=== PATIENT | female | born 1990 | race Caucasian/White ===

== ENCOUNTER 2019-05-21 18:54 | Inpatient (IN) | payer MEDICAID ==
[~2019-05-21] VITALS: Ht 144.8 cm; Wt 56.9 kg
[2019-05-21 19:25] VITALS: BP 136/91; PULSE 67; RESP 18; Ht 144.8 cm; Wt 56.9 kg
[2019-05-21] MEDS ORDERED: LACTATED RINGER'S 1,000 ML IV SCH (20:46)
--- NOTE | 2019-05-21 23:07 | TRIAGE ---
OB Triage Datetime Report Generated by CPN: 05/21/2019 23:06 Datetime: 05/21/2019 22:15 Arrived By: Ambulatory Arrived From: TRIAGE Datetime: 05/21/2019 21:05 Stage of : OB Triage Labor Evaluation Monitor Mode: External Resting Tone [place]: Relaxed Heart Rate FHR Baseline Rate: 145 Monitor Mode: External US Variability: Moderate 6-25 bpm Accelerations: 15X15 Pain Assessment Pain Scale: 0 Pain Presence: None/Denies Pain Type: N/A Pain Relief Measures: Comfort Measures Datetime: 05/21/2019 19:55 Stage of : OB Triage Labor Evaluation Monitor Mode: External Resting Tone [place]: Relaxed Heart Rate FHR Baseline Rate: 145 Monitor Mode: External US Variability: Moderate 6-25 bpm Accelerations: 15X15 Pain Assessment Pain Scale: 0 Pain Presence: None/Denies Pain Type: N/A Pain Relief Measures: Comfort Measures Datetime: 05/21/2019 19:21 Stage of : OB Triage Assessment Type: Triage Time of Arrival: 05/21/2019 18:46 EGA: 24.1 Arrived By: Wheelchair Arrived From: Home Movement: Present Contractions: Denies/Absent Rupture of Membranes: Denies Vaginal Bleeding: None Vaginal Discharge: Present Recent Sexual Intercouse: Denies Abdominal Trauma: Not Applicable Patient Complaints: None Time Provider Notified: 05/21/2019 21:35 Provider Notified: Delshad Initial Plan: EFM, VS Maternal Assessment Level of Consciousness: Keenly Alert, Responsive DTR's/Clonus: DTRs 2+; No Clonus Headache: Denies Blurred Vision: No Respiratory Effort: Unlabored; Regular Rhythm; Equal Expansion Breath Sounds, Left: Clear and Equal Breath Sounds, Right: Clear and Equal Nausea/Vomiting: Denies RUQ Epigastric Pain: Denies Lower Extremities Edema: None Degree: None Upper Extremities Edema: None Degree: None Facial Edema: None Temperature Route: Oral Fall Risk Assessment History of Falling: (0) No Secondary Diagnosis: (0) No Ambulatory Aid: (0) Bedrest/Nurse Assist IV Therapy: (0) No Gait: (0) Normal/Bedrest/Immobile Mental Status: (0) Oriented to Own Ability Fall Score: 0 Fall Risk Score Definition: No Risk: No action required Labor Evaluation Monitor Mode: External Monitor Mode: External US Pain Assessment Pain Scale: 2 Pain Presence: Intermittent Pain Type: Ache Pain Location: Abdomen Pain Relief Measures: Comfort Measures
[2019-05-22] MEDS ORDERED: ASPIRIN 81 MG TAB PO SCH (09:00)
[2019-05-22] MEDS: PRENATAL VITAMIN PO SCH (10:50)
[2019-05-22] MEDS: ASPIRIN (EC) 81 MG TAB PO SCH (10:55)
--- NOTE | 2019-05-22 15:53 | CONS ---
Assessment/Plan Assessment/Plan Hospital Course (Demo Recall) With the help of an rn peritoneal dialysis I have explained to the mother about extreme prematurity, extremely low birthweight, survival greater than 70 to 80% based on when the baby is born, respiratory distress syndrome, ventilatory assistance, risk for chronic lung disease, intercurrent infections, antibiotic therapy, risk for necrotizing enterocolitis and gastrointestinal perforation, feeding problems with intolerance, slow nippling of prematurity, risk for intraventricular hemorrhage, risk for long-term neurodevelopmental problems including but not limited to delayed milestones, low intelligence, school problems, cerebral palsy, jaundice, phototherapy, general treatment plan and general procedures done in NICU and answered mother's questions and address the concerns. Mom seems to understand the risks with extreme prematurity. I have spent 25 to 30 minutes in reviewing the mother's history, explaining her problems related to extreme prematurity and extreme low birthweight and answering questions, coordinating the care with ancillary personnel and dictating the consult note. Thank you very much for allowing me to take part in the care of this patient, will follow the baby and the mom as needed Consultation Date/Type/Reason Admit Date/Time May 21, 2019 at 20:40 Date of Consultation: May 22, 2019 Type of Consult consult requested by Dr. Baez for prematurity at 24 and 2/7 weeks with history of chronic hypertension superimposed with gestational hypertension. Reason for Consultation Prematurity at 24 and 2/7 weeks with history of chronic hypertension superimposed with gestational hypertension Estimated weight is 711 g . EDC is 09/09/2019. Mom is 28-year-old, g ravida 2, para 1 with first child 1-year-old, born at term by section. Date/Time of Note DATE: 05/22/19 TIME: 15:48 Past Medical History Medications Current Medications Prenat Multivit/ [place]/Iron/Folic Ac () 1 tab DAILY PO Last administered on 05/22/19at 10:50; Admin Dose 1 TAB; Start 05/22/19 at 09:00 Aspirin (Halfprin) 81 mg DAILY PO Last administered on 05/22/19at 10:55; Admin Dose 81 MG; Start 05/22/19 at 11:00 Allergies: Coded Allergies: No Known Allergy (Unverified , 05/21/19) Social History Smoking Status: Never smoker Exam/Review of Systems Exam Vitals Vital Signs Date Temp Pulse Resp B/P (MAP) Pulse Ox O2 O2 Flow FiO2 Time Delivery Rate 05/21/19 99.0 67 18 136/91 99 Room Air 19:25 (106) Results Result Diagram: 05/21/19212905/21/192129 Results 24hrs Laboratory Tests Test 05/21/19 21:30 05/22/19 06:49 White Blood Count 14.4 H Red Blood Count 3.49 L Hemoglobin 11.4 L Hematocrit 34.0 L Mean Corpuscular Volume 97.4 Mean Corpuscular Hemoglobin 32.7 Mean Corpuscular Hemoglobin Concent 33.5 Red Cell Distribution Width 13.1 Platelet Count 279 Mean Platelet Volume 10.8 H Immature Granulocytes % 1.000 H Neutrophils % 65.1 Lymphocytes % 24.7 Monocytes % 7.7 Eosinophils % 0.8 Basophils % 0.7 Nucleated Red Blood Cells % 0.0 Immature Granulocytes # 0.140 H Neutrophils # 9.4 H Lymphocytes # 3.6 H Monocytes # 1.1 H Eosinophils # 0.1 Basophils # 0.1 Nucleated Red Blood Cells # 0.0 Prothrombin Time 13.3 Prothrombin Time Ratio 1.0 INR International Normalized Ratio 1.00 Activated Partial Thromboplast Time 29.1 Fibrinogen 439.0 Urine Color COLORLESS Urine Clarity CLEAR Urine pH 7.0 Urine Specific [place] 1.002 L Urine Ketones NEGATIVE Urine Nitrite NEGATIVE Urine Bilirubin NEGATIVE Urine Urobilinogen NEGATIVE Urine Leukocyte Esterase NEGATIVE Urine Hemoglobin NEGATIVE Urine Glucose 1+ H Urine Total Protein NEGATIVE Sodium Level 139 Potassium Level 3.7 Chloride Level 108 Carbon Dioxide Level 24 Anion Gap 7 Blood Urea Nitrogen 5 L Creatinine 0.47 Est Glomerular Filtrat Rate mL/min > 60 Glucose Level 64 L Uric Acid 2.4 L Calcium Level 8.7 Total Bilirubin 0.4 Direct Bilirubin 0.00 Indirect Bilirubin 0.4 Aspartate Amino Transf (AST/SGOT) 31 Alanine Aminotransferase (ALT/SGPT) 25 Alkaline Phosphatase 78 Total Protein 6.9 Albumin 3.4 Globulin 3.50 H Albumin/Globulin Ratio 0.97 Glucose 1 Hour Postprandial (Timed) 142 Medications Medication Current Medications Prenat Multivit/ [place]/Iron/Folic Ac () 1 tab DAILY PO Last administered on 05/22/19at 10:50; Admin Dose 1 TAB; Start 05/22/19 at 09:00 Aspirin (Halfprin) 81 mg DAILY PO Last administered on 05/22/19at 10:55; Admin Dose 81 MG; Start 05/22/19 at 11:00 JOSEPH RAND MD May 22, 2019 15:53
[2019-05-22] MEDS ORDERED: ACETAMINOPHEN 325 MG TAB PO PRN (16:30)
--- NOTE | 2019-05-22 20:05 | HP ---
Date/Time of Note Date/Time of Note DATE: 05/22/19 TIME: 20:02 OB - History Hx of Present Chief Complaint: elevated BP inclinic Estimated Due Date: Sep 09, 2019 : 2 Para: 1 Spontaneous : 0 Therapeutic : 0 Care: Good Care Ultrasounds: Normal mid trimester US Obstetrical Complications: None Medical Complications: None Past Family/Social History * Past Medical, Surgical, Family and Obstetric Histories reviewed from chart. OB Admission Exam Vital Signs Vital Signs Vital Signs Date Temp Pulse Resp B/P (MAP) Pulse Ox O2 O2 Flow FiO2 Time Delivery Rate 05/21/19 99.0 67 18 136/91 99 Room Air 19:25 (106) Physical Exam HEENT: WNL Heart: Rhythm Normal Lungs: Clear, Equal Abdomen: WNL Extremities: Normal Reflexes: Normal Heart Rate: 140's Last 72 hours Lab Results CBC & BMP 05/21/19 21:30 Liver Function Test 05/21/19 21:30 Alanine Aminotransferase (ALT/SGPT) 25 Albumin 3.4 Alkaline Phosphatase 78 Aspartate Amino Transf (AST/SGOT) 31 Direct Bilirubin 0.00 Total Protein 6.9 OB Assessment/Plan Reason for admission: other Other Assessment: R/O preeclampsia Plan: Other Other plan: Admit PIH labs 24 hour urine collection Monitor BP Perinatology and Neonatology consults VIDA CLEANING MD May 22, 2019 20:05
--- NOTE | 2019-05-23 04:30 | CONS ---
DATE OF ADMISSION: 05/21/2019 DATE OF CONSULTATION: 05/22/2019 HISTORY OF PRESENT ILLNESS: The patient is a 28-year-old G2, P1, admitted last night from clinic sec ondary to elevated blood pressures. What the blood pressure was at that time in the clinic is not kn own. OB HISTORY: She has been hypertensive prior to and she has been on lisinopril throughout. Lisinopril was then stopped, started on labetalol; however, with labetalol she started having lower b lood pressure and it was discontinued. These decisions were made by Dr. Baez, primary MD and I do agree with that. OB HISTORY: secondary to breech presentation. However, at the time of delivery she mentio ns she had elevated blood pressure. Otherwise, her history is normal. VITAL SIGNS: Blood pressure currently is 134/83. Physical examination deferred. heart tones reassuring for the gestational age, but is being done not continuously. LABORATORY VALUES: Preeclampsia are normal. A 24-hour urine for protein is pending. IMPRESSION: Intrauterine at 24 weeks and 2 days with chronic hypertension. In the hospita on bed rest, her blood pressures have been in the normal to moderate range. Occasional diastolic b lood pressures over 90, but overall stable. She is asymptomatic status post lisinopril. Labetalol. Currently on no medication for blood pressure. Labs normal. A 24-hour urine for protein pending. RECOMMENDATIONS: Monitor blood pressures overnight and tomorrow morning if her blood pressures have been in the normal to moderate range, she is asymptomatic, the patient can be discharged home. She should be on modified bed rest at home and she should be provided a note for her work so she does not work. Any further questions, please contact me. Dictated By: GLENNY GARCIA/PHI Conf#: [id number] DID#: [id number]
[2019-05-23] MEDS: ASPIRIN (EC) 81 MG TAB PO SCH (09:50)
[2019-05-23] MEDS: PRENATAL VITAMIN PO SCH (09:50)
[2019-05-23] MEDS: BETAMET NA PHOS/AC(6 MG/ML) 2 ML INJ SYG IM SCH (09:51)
--- NOTE | 2019-05-23 14:43 | CONS ---
Consultation Date/Type/Reason Admit Date/Time May 21, 2019 at 20:40 Date of Consultation: May 23, 2019 Type of Consult NICU Consult Reason for Consultation 24 wk gestation Date/Time of Note DATE: 05/23/19 TIME: 14:31 Hx of Present Illness Ms Armenta was seen and given a consult based on a gestation of 24+2/7 wk and EFW 711g. She is a , 28 yo. Her first child was full-term and is healthy. This is her first fetus. She is being admitted for observation and PIH. She is A+, RPR NR, Hep B neg, HIV neg, Rubella Immune, GC/CT neg/neg, normal GTT 126, normal TSH and fT4, negative for CF screen Current meds of significance: ASA 80 mg daily. Based on expecting a boy, she was made aware that girls tend to do better, advance faster, and are usually able to get extubated faster compared to boys. She was informed on the most serious complications of prematurity, but was also told that these are not the only complications. These are simply the more serious ones. She can expect a possibility of head bleeds which if higher- grade can often require surgery to remove excess brain fluid build-up. She was informed that respiratory failure 2ary to extreme prematurity and lack of surfactant is almost uniform in all extreme premies. She was informed that her baby most likely will need to be intubated and require mechanical ventilation. There is a risk of not only infection, need for central line placement, but also a serious infection of the intestines known as necrotizing enterocolitis (NEC). NEC can and has killed premies and is multifactorial. Last of all, the risk of for a micropremie is there and continues to be a risk after the first 72hr of life sometimes from severe sepsis or respiratory failure. Constitutional: no complaints, improved Eyes: no complaints ENT: no complaints Respiratory: no complaints Cardiovascular: no complaints Gastrointestinal: no complaints Genitourinary: no complaints Musculoskeletal: no complaints Skin: no complaints Neurologic: no complaints Endocrine: no complaints Lymphatic: no complaints Psychological: no complaints, nl mood/affect Immunologic: no complaints Past Medical History Medications Current Medications Prenat Multivit/ [place]/Iron/Folic Ac () 1 tab DAILY PO Last administered on 05/23/19at 09:50; Admin Dose 1 TAB; Start 05/22/19 at 09:00 Aspirin (Halfprin) 81 mg DAILY PO Last administered on 05/23/19at 09:50; Admin Dose 81 MG; Start 05/22/19 at 11:00 Betamethasone Acet/Betameth SodPhos ([place] Soluspan) 12 mg Q24H IM Last administered on 05/23/19at 09:51; Admin Dose 12 MG; Start 05/23/19 at 10:30; Stop 05/24/19 at 10:31 Acetaminophen (Tylenol Tab) 650 mg Q4H PRN PO .PAIN OR TEMP; Start 05/22/19 at 16:30 Allergies: Coded Allergies: No Known Allergy (Unverified , 05/21/19) Social History Smoking Status: Never smoker Exam/Review of Systems Exam Vitals Vital Signs Date Temp Pulse Resp B/P (MAP) Pulse Ox O2 O2 Flow FiO2 Time Delivery Rate 05/21/19 99.0 67 18 136/91 99 Room Air 19:25 (106) Intake and Output 05/22/19 05/22/19 05/23/19 1515:00 23:00 07:00 OutputOutput Total 1700 ml 800 ml BalanceBalance -1700 ml -800 ml Results Result Diagram: 05/21/19 2130 05/21/19 2130 Results 24hrs Laboratory Tests Test 05/22/19 23:00 05/23/19 06:26 Urine Random Creatinine 23.78 Urine Collection Duration 24 Urine Total Volume 24 Hours 4800 Urine Creatinine Timed 24 Creatinine Clearance 168.6 H Urine Total Volume (Protein) 4800 Urine Total Protein 24 Hour Serum Fasting Glucose Urine Urine Fasting Glucose Medications Medication Current Medications Prenat Multivit/ [place]/Iron/Folic Ac () 1 tab DAILY PO Last administered on 05/23/19at 09:50; Admin Dose 1 TAB; Start 05/22/19 at 09:00 Aspirin (Halfprin) 81 mg DAILY PO Last administered on 05/23/19at 09:50; Admin Dose 81 MG; Start 05/22/19 at 11:00 Betamethasone Acet/Betameth SodPhos ([place] Soluspan) 12 mg Q24H IM Last administered on 05/23/19at 09:51; Admin Dose 12 MG; Start 05/23/19 at 10:30; Stop 05/24/19 at 10:31 Acetaminophen (Tylenol Tab) 650 mg Q4H PRN PO .PAIN OR TEMP; Start 05/22/19 at 16:30 VANCE GUY MD May 23, 2019 14:43
--- NOTE | 2019-05-23 15:51 | QN ---
Documentation Comment No complaint Afebrile VSS Strip Appropriate for GA IM betamethasone VIDA CLEANING MD May 23, 2019 15:51
[2019-05-24] MEDS: PRENATAL VITAMIN PO SCH (08:56)
[2019-05-24] MEDS: BETAMET NA PHOS/AC(6 MG/ML) 2 ML INJ SYG IM SCH (10:12)
[2019-05-24] MEDS: ASPIRIN (EC) 81 MG TAB PO SCH (10:13)
--- NOTE | 2019-05-24 20:36 | QN ---
Documentation Comment No complaint afebrile BP 140/92 Strip Appropriate for GA 24 hour urine total protein 864 mg Continue with in hospital care IVDA CLEANING MD May 24, 2019 20:36
[2019-05-25] MEDS: PRENATAL VITAMIN PO SCH (09:08)
[2019-05-25] MEDS: ASPIRIN (EC) 81 MG TAB PO SCH (09:09)
[2019-05-25] MEDS ORDERED: SENNA TAB PO ONE (20:00)
--- NOTE | 2019-05-25 20:06 | QN ---
Documentation Comment No complaint Afebrile VSS Strip Appropriate for GA Contiue present care. VIDA CLEANING MD May 25, 2019 20:06
[2019-05-26] MEDS: PRENATAL VITAMIN PO SCH (10:05)
[2019-05-26] MEDS: ASPIRIN (EC) 81 MG TAB PO SCH (10:05)
--- NOTE | 2019-05-26 20:54 | QN ---
Documentation Comment Patient had contractions earlier. Afebrile VSS Strip appropriate for GA fibronectin negative Cervical length normal Continue with present care VIDA CLEANING MD May 26, 2019 20:54
[2019-05-27] MEDS ORDERED: DIPHENHYDRAMINE 50 MG CAP PO PRN ×2 (04:51→05:02)
[2019-05-27] MEDS: ASPIRIN (EC) 81 MG TAB PO SCH (09:17)
[2019-05-27] MEDS: PRENATAL VITAMIN PO SCH (09:17)
--- NOTE | 2019-05-27 09:29 | QN ---
Documentation Comment No complaint Afebrile elevated BP earlier this morning Strip Appropriate for GA Platelet, ALT and AST normal Perinatology follow up VIDA CLEANING MD May 27, 2019 09:29
--- NOTE | 2019-05-27 18:52 | QN ---
Documentation Comment Cervix closed Urine no sign of infection Patient was evaluated by Dr Escobar ([facility]) who recommends to d/c patient home. VIDA CLEANING MD May 27, 2019 18:52
--- NOTE | 2019-05-27 18:53 | DS ---
Date/Time of Note Date/Time of Note DATE: 05/27/19 TIME: 18:53 Obstetrical Discharge Record Final Diagnosis Final Diagnosis: not delivered Complications Preg induced Hypertension Condition on Discharge Physical Assessment Voiding: Yes Bowel Movement: Yes Calf Tenderness: No Patient Condition: Stable VIDA CLEANING MD May 27, 2019 18:53
== END 2019-05-27 20:05 | disposition home or self-care (01) | DRG 833 ==
LOC: L-D 18:54 → OBT 18:54 → L-D 20:40
PROVIDERS: ADMIT Obstetrics & Gynecology; ATTEND Obstetrics & Gynecology
DX: O13.2 Gestational [pregnancy-induced] hypertension without significant proteinuria, second trimester (principal); Z3A.24 24 weeks gestation of pregnancy
CPT/HCPCS: 76815; 76817; 80053; 81003; 82575; 82731; 82950; 82951; 84156; 84560; 85025; 85384; 85610; 85730; G0463; J0702; J7120

== ENCOUNTER 2019-06-18 18:37 | Outpatient (CLI) | payer MEDICAID ==
[~2019-06-18] VITALS: Ht 144.8 cm; Wt 57.6 kg
[~2019-06-18 18:37] MED LIST: PNV11TAB PO
[2019-06-18 18:42] VITALS: Ht 144.8 cm; Wt 57.6 kg
--- NOTE | 2019-06-19 00:38 | PN ---
Triage Information Date/Time 06/18/19 Reason for visit: DFM Weeks of Gestation 28w1d /Para Diabetes: none Hypertention: essential Objective BP 137/89, 140/89 Heart Rate: 130's Heart Rate Comments adequate for GA Contractions: < 5 Minutes Apart Results/Medications Imaging Results BPP 07/02 ELIZABETH 13.3 Disposition: Discharge Assessment/Plan A IUP 28w1d DFM chronic HTN P discharge home F/U with tona tomorrow NATALIE SPRAGUE MD Jun 19, 2019 00:38
== END 2019-06-18 22:05 | disposition home or self-care (01) ==
LOC: OBT 18:37 → L-D 18:37 → OBT 22:05
PROVIDERS: ATTEND Obstetrics & Gynecology
DX: O36.8130 Decreased fetal movements, third trimester, not applicable or unspecified (principal); O16.3 Unspecified maternal hypertension, third trimester; Z3A.28 28 weeks gestation of pregnancy
CPT/HCPCS: 76818; Z7500; G0463

== ENCOUNTER 2019-07-09 18:25 | Inpatient (IN) | payer MEDICAID ==
[~2019-07-09] VITALS: Ht 147.3 cm; Wt 60.3 kg
[2019-07-09 19:46] VITALS: BP 159/99; PULSE 60; RESP 18; Ht 147.3 cm; Wt 60.3 kg
[2019-07-10] MEDS ORDERED: DIPHENHYDRAMINE 25 MG CAP PO ONE (02:00)
[2019-07-10] MEDS ORDERED: ACETAMINOPHEN 325 MG TAB PO ONE (02:00)
[2019-07-10] MEDS ORDERED: DIPHENHYDRAMINE 50 MG CAP PO SCH (21:00)
[2019-07-10] MEDS: DIPHENHYDRAMINE 50 MG CAP PO PRN (22:08)
[2019-07-11] MEDS: PRENATAL VITAMIN PO SCH (08:44)
[2019-07-12] MEDS: PRENATAL VITAMIN PO SCH (09:22)
[2019-07-12] MEDS: DIPHENHYDRAMINE 50 MG CAP PO PRN (21:11)
[2019-07-13] MEDS: PRENATAL VITAMIN PO SCH (09:28)
[2019-07-14] MEDS ORDERED: ACETAMINOPHEN 500 MG TAB PO PRN (07:00)
[2019-07-14] MEDS: PRENATAL VITAMIN PO SCH (09:12)
[2019-07-14] MEDS ORDERED: DIPHENHYDRAMINE 25 MG CAP PO SCH (21:00)
[2019-07-15] MEDS: PRENATAL VITAMIN PO SCH (08:34)
[2019-07-16] MEDS: PRENATAL VITAMIN PO SCH (09:25)
[2019-07-16] MEDS ORDERED: SPECIAL NON-STANDARD MEDICATION PO SCH (21:00)
[2019-07-16] MEDS: DOXYLAMINE SUCCINATE 25 MG TABLET PO SCH (21:39)
[2019-07-17] MEDS: PRENATAL VITAMIN PO SCH (08:56)
[2019-07-17] MEDS: DOXYLAMINE SUCCINATE 25 MG TABLET PO SCH (20:38)
[2019-07-18] MEDS: PRENATAL VITAMIN PO SCH (08:59)
[2019-07-18] MEDS: DOXYLAMINE SUCCINATE 25 MG TABLET PO SCH (21:04)
[2019-07-19] MEDS: PRENATAL VITAMIN PO SCH (09:49)
[2019-07-19] MEDS: DOXYLAMINE SUCCINATE 25 MG TABLET PO SCH (21:12)
[2019-07-20] MEDS: PRENATAL VITAMIN PO SCH (09:20)
[2019-07-20] MEDS: DOXYLAMINE SUCCINATE 25 MG TABLET PO SCH (21:58)
[2019-07-21] MEDS: PRENATAL VITAMIN PO SCH (10:07)
[2019-07-21] MEDS: LABETALOL 200 MG TAB PO SCH ×2 (10:08→21:37)
[2019-07-21] MEDS: BETAMET NA PHOS/AC(6 MG/ML) 2 ML INJ SYG IM SCH (10:34)
[2019-07-21] MEDS: DOXYLAMINE SUCCINATE 25 MG TABLET PO SCH (21:37)
[2019-07-22] MEDS: LABETALOL 200 MG TAB PO SCH ×2 (09:17→21:18)
[2019-07-22] MEDS: PRENATAL VITAMIN PO SCH (09:18)
[2019-07-22] MEDS: BETAMET NA PHOS/AC(6 MG/ML) 2 ML INJ SYG IM SCH (11:26)
[2019-07-22] MEDS: DOXYLAMINE SUCCINATE 25 MG TABLET PO SCH (21:24)
[2019-07-23] MEDS: LABETALOL 200 MG TAB PO SCH (08:41)
[2019-07-23] MEDS: PRENATAL VITAMIN PO SCH (08:41)
[2019-07-23] MEDS ORDERED: METHYLERGONOVINE 0.2 MG INJ IM PRN (10:00)
[2019-07-23] MEDS ORDERED: CARBOPROST 250 MCG INJ IM PRN (10:00)
[2019-07-23] MEDS ORDERED: CEFAZOLIN 2 GM/50 ML (PMX) 50 ML IVPB SCH (10:00)
[2019-07-23] MEDS ORDERED: MISOPROSTOL 200 MCG TAB PR PRN (10:00)
[2019-07-23] MEDS ORDERED: OXYTOCIN 30 UNITS/LR 500 ML IV PRN (10:00)
[2019-07-23] MEDS: LACTATED RINGER'S 1,000 ML IV SCH ×2 (11:15→22:20)
[2019-07-23] MEDS ORDERED: MAGNESIUM SULFATE 20 GM/500 ML 500 ML IV SCH (11:50)
[2019-07-23] MEDS ORDERED: MAGNESIUM SULFATE 4 GM/100 ML 100 ML IV SCH (12:00)
[2019-07-23] MEDS ORDERED: PHENYLephrine (100 MCG/ML) 5ML SYG ONE (18:00)
[2019-07-23] MEDS ORDERED: EPHEDrine 25 MG/5 ML SYG ONE (18:00)
[2019-07-23] MEDS ORDERED: morphine SULFATE/PF (10 MG/10 ML) INJ ONE (18:07)
[2019-07-23] MEDS ORDERED: AZITHROMYCIN 500MG/NS (PMX) 250 ML ONE (18:23)
[2019-07-23] MEDS: OXYTOCIN 30 UNITS/LR 500 ML IV SCH ×2 (20:59→23:26)
[2019-07-23] MEDS ORDERED: KETOROLAC 30 MG INJ IV STA (21:03)
[2019-07-23] MEDS ORDERED: MISOPROSTOL 200 MCG TAB PO ONE (22:08)
[2019-07-23] MEDS ORDERED: TRANEXAMIC ACID 1GM/100ML(PMX) 100 ML IVPB ONE (22:30)
[2019-07-24] VITALS (7 sets, daily range): BP systolic 124–145; BP diastolic 65–88; PULSE 58–71; RESP 16–20
[2019-07-24] MEDS ORDERED: OXYTOCIN 30 UNITS/LR 500 ML IV SCH (00:01)
[2019-07-24] MEDS ORDERED: LACTATED RINGER'S 1,000 ML IV SCH ×2 (00:01→11:00)
[2019-07-24] MEDS ORDERED: MAGNESIUM SULFATE 40GM/1000ML 1,000 ML IV SCH (00:05)
[2019-07-24] MEDS ORDERED: OXYTOCIN 30 UNITS/LR 500 ML IV PRN (00:30)
[2019-07-24] MEDS ORDERED: CARBOPROST 250 MCG INJ IM PRN (00:30)
[2019-07-24] MEDS ORDERED: MISOPROSTOL 200 MCG TAB PR PRN (00:30)
[2019-07-24] MEDS ORDERED: LANOLIN HPA 1 PKT TOP PRN (00:30)
[2019-07-24] MEDS ORDERED: ONDANSETRON 4 MG INJ IV PRN ×2 (01:00)
[2019-07-24] MEDS ORDERED: ALBUTEROL 0.083% (NEB) 2.5 MG/3 ML AMP HHN PRN (01:00)
[2019-07-24] MEDS ORDERED: NALOXONE (0.4 MG/ML) INJ IV PRN (01:00)
[2019-07-24] MEDS ORDERED: HYDROmorphONE 0.5 MG/0.5 ML SYG IV PRN ×2 (01:00)
[2019-07-24] MEDS ORDERED: HYDROmorphONE 1 MG/5 ML IV SYRINGE IV PRN ×3 (01:00)
[2019-07-24] MEDS ORDERED: KETOROLAC 30 MG INJ IV PRN ×2 (01:00)
[2019-07-24] MEDS ORDERED: METOCLOPRAMIDE 10 MG INJ IV PRN (01:00)
[2019-07-24] MEDS ORDERED: DIPHENHYDRAMINE 50 MG INJ IV PRN ×2 (01:00)
[2019-07-24] MEDS ORDERED: FENTAnyl 50 MCG/ML VIAL IV PRN ×3 (01:00)
[2019-07-24] MEDS: DOXYLAMINE SUCCINATE 25 MG TABLET PO SCH ×2 (01:40→21:00)
[2019-07-24] MEDS ORDERED: LOPERAMIDE 2 MG CAP PO PRN (07:00)
[2019-07-24] MEDS: SENNA/DOCUSATE NA (8.6MG/50MG) TAB PO SCH ×2 (10:12→22:24)
[2019-07-24] MEDS ORDERED: OXYCODONE/ACETAMINOPHEN (5/325) TAB PO PRN (18:08)
[2019-07-24] MEDS: IBUPROFEN 800 MG TAB PO SCH (22:24)
[2019-07-25 03:55] VITALS: BP 127/76; PULSE 53; RESP 18
[2019-07-25] MEDS: IBUPROFEN 800 MG TAB PO SCH ×3 (05:38→21:55)
[2019-07-25 08:30] VITALS: BP 117/77; PULSE 64; RESP 16
[2019-07-25] MEDS: SENNA/DOCUSATE NA (8.6MG/50MG) TAB PO SCH ×2 (08:44→21:55)
[2019-07-25 12:12] VITALS: BP 129/82; PULSE 67; RESP 17
[2019-07-25 16:30] VITALS: BP 132/78; PULSE 67; RESP 14
[2019-07-25 20:15] VITALS: BP 145/84; PULSE 83; RESP 18
[2019-07-25] MEDS: DOXYLAMINE SUCCINATE 25 MG TABLET PO SCH (21:55)
[2019-07-26] VITALS (13 sets, daily range): BP systolic 134–163; BP diastolic 81–103; PULSE 64–92; RESP 17–18
[2019-07-26] MEDS: IBUPROFEN 800 MG TAB PO SCH ×3 (05:39→22:10)
[2019-07-26] MEDS ORDERED: DIPHTH/TET/ACEL PERTUSS (ADULT) 0.5 ML VIAL IM* ONE (09:00)
[2019-07-26] MEDS: SENNA/DOCUSATE NA (8.6MG/50MG) TAB PO SCH ×2 (09:20→22:10)
[2019-07-26] MEDS ORDERED: NIFEdipine (XL) 30 MG TAB PO ONE (20:30)
[2019-07-26] MEDS: DOXYLAMINE SUCCINATE 25 MG TABLET PO SCH (22:10)
[2019-07-27] VITALS (11 sets, daily range): BP systolic 128–156; BP diastolic 81–102; PULSE 84–117; RESP 18–20
[2019-07-27] MEDS: IBUPROFEN 800 MG TAB PO SCH ×3 (05:57→21:14)
[2019-07-27] MEDS ORDERED: LABETALOL 200 MG TAB PO ONE (08:00)
[2019-07-27] MEDS: SENNA/DOCUSATE NA (8.6MG/50MG) TAB PO SCH ×2 (09:03→21:14)
[2019-07-27] MEDS: NIFEdipine (XL) 30 MG TAB PO SCH ×2 (09:05→21:14)
[2019-07-27] MEDS: ASCORBIC ACID 500 MG TAB PO SCH (09:36)
[2019-07-27] MEDS: FERROUS SULFATE (EC) 325 MG TAB PO SCH (09:36)
[2019-07-27] MEDS ORDERED: DIPHENHYDRAMINE 25 MG CAP PO ONE ×2 (11:00)
[2019-07-27] MEDS: DOXYLAMINE SUCCINATE 25 MG TABLET PO SCH (21:15)
[2019-07-28] VITALS (8 sets, daily range): BP systolic 135–151; BP diastolic 85–99; PULSE 77–96; RESP 18–19
[2019-07-28] MEDS: OXYCODONE/ACETAMINOPHEN (5/325) TAB PO PRN ×2 (04:50→21:50)
[2019-07-28] MEDS: IBUPROFEN 800 MG TAB PO SCH ×3 (05:54→22:00)
[2019-07-28] MEDS: FERROUS SULFATE (EC) 325 MG TAB PO SCH (09:11)
[2019-07-28] MEDS: NIFEdipine (XL) 30 MG TAB PO SCH ×2 (09:11→21:36)
[2019-07-28] MEDS: SENNA/DOCUSATE NA (8.6MG/50MG) TAB PO SCH ×2 (09:11→21:36)
[2019-07-28] MEDS: ASCORBIC ACID 500 MG TAB PO SCH (09:11)
[2019-07-28] MEDS: DOXYLAMINE SUCCINATE 25 MG TABLET PO SCH (21:49)
[2019-07-29 00:05] VITALS: BP 136/75; PULSE 76; RESP 18
[2019-07-29 05:55] VITALS: BP 110/79; PULSE 89; RESP 18
[2019-07-29] MEDS: IBUPROFEN 800 MG TAB PO SCH ×3 (05:56→21:41)
[2019-07-29 08:00] VITALS: BP 115/71; PULSE 91; RESP 18
[2019-07-29] MEDS: SENNA/DOCUSATE NA (8.6MG/50MG) TAB PO SCH ×2 (08:31→21:41)
[2019-07-29] MEDS: NIFEdipine (XL) 30 MG TAB PO SCH ×2 (08:31→21:42)
[2019-07-29] MEDS: FERROUS SULFATE (EC) 325 MG TAB PO SCH (08:32)
[2019-07-29] MEDS: ASCORBIC ACID 500 MG TAB PO SCH (08:32)
[2019-07-29 16:00] VITALS: BP 116/61; PULSE 96; RESP 16
[2019-07-29 19:30] VITALS: BP 127/73; PULSE 88; RESP 19
[2019-07-29] MEDS: DOXYLAMINE SUCCINATE 25 MG TABLET PO SCH (21:42)
[2019-07-30 03:30] VITALS: BP 111/68; PULSE 80; RESP 18
[2019-07-30] MEDS: IBUPROFEN 800 MG TAB PO SCH ×2 (05:32→13:41)
[2019-07-30 08:00] VITALS: BP 106/61; PULSE 67; RESP 18
[2019-07-30] MEDS: NIFEdipine (XL) 30 MG TAB PO SCH (08:33)
[2019-07-30] MEDS: ASCORBIC ACID 500 MG TAB PO SCH (08:33)
[2019-07-30] MEDS: SENNA/DOCUSATE NA (8.6MG/50MG) TAB PO SCH (08:33)
[2019-07-30] MEDS: FERROUS SULFATE (EC) 325 MG TAB PO SCH (08:33)
[2019-07-30 12:00] VITALS: BP 110/57; PULSE 92; RESP 18
[2019-07-30 15:45] VITALS: BP 117/68; PULSE 83; RESP 16
== END 2019-07-30 18:45 | disposition home or self-care (01) | DRG 788 ==
LOC: L-D 18:25 → OBT 18:25 → L-D 18:50 → OBT 20:40 → L-D 22:41 → PP1 07-24 02:07
PROVIDERS: ADMIT Obstetrics & Gynecology; ATTEND Obstetrics & Gynecology
PROC: 10D00Z1 Extraction of Products of Conception, Low, Open Approach (ICD-10-PCS; principal; 2019-07-23)
DX: O14.13 Severe pre-eclampsia, third trimester (principal); Z3A.32 32 weeks gestation of pregnancy; Z37.0 Single live birth; O26.893 Other specified pregnancy related conditions, third trimester; R94.5 Abnormal results of liver function studies; O99.345 Other mental disorders complicating the puerperium; F41.9 Anxiety disorder, unspecified; D72.829 Elevated white blood cell count, unspecified; O90.89 Other complications of the puerperium, not elsewhere classified; O32.8XX0 Maternal care for other malpresentation of fetus, not applicable or unspecified; Z3A.33 33 weeks gestation of pregnancy
CPT/HCPCS: 71046; 76815; 80053; 81270; 82575; 83615; 83735; 84112; 84156; 84560; 85025; 85384; 85610; 85730; 86592; 86850; 86900; 86901; 87340; 88307; 93005; 93306; 99464; G0463; J0456; J0690; J0702; J1200; J1885; J2274; J2370; J2590; J3475; J7120